=== PATIENT | male | born 1965 | race Caucasian/White ===

== ENCOUNTER 2017-09-28 14:55 | Emergency (ER) | payer MEDICARE ==
[~2017-09-28] VITALS: Ht 172.7 cm; Wt 63.6 kg
[~2017-09-28 14:55] MED LIST: Z.0.NO CURRENT MEDS
[2017-09-28 15:07] VITALS: BP 136/84; PULSE 109; RESP 20; TEMP 98.7; O2SAT 97
--- NOTE | 2017-09-28 16:11 | RADRPT ---
EXAM DATE/TIME: 09/28/2017 15:45 [facility] COMPARISON: No previous studies available for comparison. INDICATIONS : Left elbow discomfort, follow up surgery. MEDICAL HISTORY : None. SURGICAL HISTORY : None. ENCOUNTER: Initial ACUITY: 4 - 6 months PAIN SCORE: 1/10 LOCATION: Left elbow. FINDINGS: Postsurgical features of prior plate and screw fixation of the proximal radius. Degenerative changes are noted in the elbow with osteophyte formation. No significant joint effusion. No acute bony fractu res or focal bony destruction. CONCLUSION: 1. Postsurgical features of proximal radial fixation. Hardware is intact. No acute fractures. 2. Degenerative changes of the elbow. Carlos Lynne MD on September 28, 2017 at 16:07 Board Certified Radiologist. This report was verified electronically.
--- NOTE | 2017-09-28 16:11 | RADRPT ---
EXAM DATE/TIME: 09/28/2017 15:53 [facility] COMPARISON: No previous studies available for comparison. INDICATIONS : Chest pain. MEDICAL HISTORY : None. SURGICAL HISTORY : None. ENCOUNTER: Initial ACUITY: 1 week PAIN SCORE: 10/10 LOCATION: middle chest. FINDINGS: PA and lateral views of the chest demonstrate the lungs to be symmetrically aerated without evidence of mass, infiltrate or effusion. The cardiomediastinal contours are unremarkable. Osseous structure s are intact. CONCLUSION: 1. No acute cardiopulmonary disease. Carlos Lynne MD on September 28, 2017 at 16:09 Board Certified Radiologist. This report was verified electronically.
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
== END 2017-09-28 17:27 | disposition left against medical advice (07) ==
LOC: NEDAMB 14:55
DX: S00.91XA Abrasion of unspecified part of head, initial encounter (principal); M25.522 Pain in left elbow; B19.20 Unspecified viral hepatitis C without hepatic coma; R07.9 Chest pain, unspecified; Y04.2XXA Assault by strike against or bumped into by another person, initial encounter; Z72.0 Tobacco use
CPT/HCPCS: 71020; 73080; 99283

== ENCOUNTER 2017-09-29 00:39 | Emergency (ER) | payer MEDICARE ==
[~2017-09-29] VITALS: Ht 170.2 cm; Wt 105.0 kg
[2017-09-29 00:42] VITALS: BP 132/82; PULSE 98; RESP 16; TEMP 97.8; O2SAT 97
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
[2017-09-29] MEDS ORDERED: TETANUS/DIPHTHERIA TOXOID ADULT 0.5 ML VIAL IM ONE (02:30)
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
== END 2017-09-29 03:48 | disposition home or self-care (01) ==
LOC: NEPD 00:39
DX: S00.81XA Abrasion of other part of head, initial encounter (principal); S00.33XA Contusion of nose, initial encounter; S00.83XA Contusion of other part of head, initial encounter; S30.0XXA Contusion of lower back and pelvis, initial encounter; S10.93XA Contusion of unspecified part of neck, initial encounter; F17.200 Nicotine dependence, unspecified, uncomplicated; Z23 Encounter for immunization; Z86.19 Personal history of other infectious and parasitic diseases; Z72.89 Other problems related to lifestyle; Y04.2XXA Assault by strike against or bumped into by another person, initial encounter
CPT/HCPCS: 70450; 70486; 72125; 72170; 72220; 90471; 90714